=== PATIENT | male | born 1990 ===

== ENCOUNTER 2016-07-23 04:57 | Emergency (ER) | payer OTHER ==
[2016-07-23 04:59] VITALS: BMI 26.6
[2016-07-23 05:01] VITALS: BP 121/84; PULSE 89; TEMP 98.9; O2SAT 92
[2016-07-23 05:05] VITALS: RESP 19
[2016-07-23] MEDS ORDERED: Albuterol-Ipratrop 3 mg / 0.5 (3 ml) UD ONE (05:09)
--- NOTE | 2016-07-23 05:29 | ED PDOC ---
Arrival/HPI - General Chief Complaint: Respiratory Distress Time Seen by Provider: 07/23/16 05:17 Historian: Patient - History of Present Illness Narrative History of Present Illness (Text): 07/23/16 05:29 This is a 25Y M with PMH of asthma here for SOB and wheezing for 1 day. He was using his albuterol inhaler at home without any relief. He denies cough, fever, chills, n/v/d, sick contacts or sore throat. He uses his inhaler rarely, but today used it multiple times today. When inspecting his inhaler, it Apr 2015. He report he was resting when the onset on his wheezing and SOB. Time/Duration: 24 hours Symptom Onset: Gradual Symptom Course: Unchanged Quality: Other (wheezing) Severity Level: 3 Activities at Onset: Rest Context: Home Past Medical History - Provider Review Nursing Documentation Reviewed: Yes - Cardiac Hx Cardiac Disorders: No - Pulmonary Hx Respiratory Disorders: Yes Hx Asthma: Yes - Neurological Hx Neurological Disorder: No - HEENT Hx HEENT Disorder: No - Renal Hx Renal Disorder: No - Endocrine/Metabolic Hx Endocrine Disorders: No - Hematological/Oncological Hx Blood Disorders: No - Integumentary Hx Dermatological Disorder: No - Musculoskeletal/Rheumatological Hx Musculoskeletal Disorders: No - Gastrointestinal Hx Gastrointestinal Disorders: No - Genitourinary/Gynecological Hx Genitourinary Disorders: No - Psychiatric Hx Psychophysiologic Disorder: No Hx Substance Use: No Family/Social History - Physician Review Nursing Documentation Reviewed: Yes Family/Social History: No Known Family HX Smoking Status: Never Smoked Hx Alcohol Use: No Hx Substance Use: No Allergies/Home Meds Allergies/Adverse Reactions: Allergies shellfish derived Allergy (Verified 07/23/16 04:58) ANAPHYLAXIS Review of Systems - Physician Review All systems were reviewed & negative as marked: Yes - Review of Systems Constitutional: Normal. absent: Fevers Eyes: Normal ENT: Normal Respiratory: SOB, Wheezing. absent: Cough, Sputum Cardiovascular: Normal. absent: Chest Pain, Palpitations Gastrointestinal: Normal. absent: Abdominal Pain, Diarrhea, Nausea, Vomiting Musculoskeletal: Normal. absent: Back Pain Skin: Normal. absent: Rash Neurological: Normal. absent: Headache, Dizziness Psychiatric: Normal. absent: Anxiety Physical Exam Vital Signs Reviewed: Yes Vital Signs Temp Pulse Resp BP Pulse Ox 07/23/16 05:02 19 07/23/16 05:00 98.9 F 89 20 121/84 92 L Temperature: Afebrile Blood Pressure: Normal Pulse: Regular Respiratory Rate: Normal Appearance: Positive for: Well-Appearing, Non-Toxic, Comfortable Pain Distress: None Mental Status: Positive for: Alert and Oriented X 3 - Systems Exam Head: Present: Atraumatic, Normocephalic Pupils: Present: PERRL Extroacular Muscles: Present: EOMI Conjunctiva: Present: Normal Mouth: Present: Moist Mucous Membranes Neck: Present: Normal Range of Motion Respiratory/Chest: Present: Good Air Exchange, Wheezes. No: Clear to Auscultation, Respiratory Distress, Accessory Muscle Use Cardiovascular: Present: Regular Rate and Rhythm, Normal S1, S2. No: Murmurs Abdomen: Present: Normal Bowel Sounds. No: Tenderness, Distention, Peritoneal Signs Back: Present: Normal Inspection Upper Extremity: Present: Normal Inspection. No: Cyanosis, Edema Lower Extremity: Present: Normal Inspection. No: Edema Neurological: Present: GCS=15, CN II-XII Intact, Speech Normal Skin: Present: Warm, Dry, Normal Color. No: Rashes Psychiatric: Present: Alert, Oriented x 3, Normal Insight, Normal Concentration Medical Decision Making ED Course and Treatment: 07/23/16 05:32 Impression: This is a 25Y M with PMH of asthma here for SOB and wheezing x 1 day. Plan: -- Duoneb --Reassess Prior Visits: Notes and results from previous visits were reviewed. Progress Note: Patient feels better after Duoneb. Denies SOB or wheezing. There was no wheezing on re-examination. Discharge Instructions: Re-evaluation. Patient feels better. Discussed results and plan with patient who expresses understanding. All questions answered and there is agreement with the plan to discharge home with instructions. Patient stable for discharge. Return if symptoms persist or worsen. Re-evaluation Time: 05:25 Reassessment Condition: Improved - Medication Orders Current Medication Orders: Discontinued Medications Albuterol/Ipratropium (Duoneb 3 Mg/0.5 Mg (3 Ml) Ud) Confirm Administered Dose 3 ml .ROUTE .STK-MED ONE Stop: 07/23/16 05:10 Last Admin: 07/23/16 05:18 Dose: 3 ml Disposition/Present on Arrival - Present on Arrival Any Indicators Present on Arrival: No History of DVT/PE: No History of Uncontrolled Diabetes: No Urinary Catheter: No History of Decub. Ulcer: No History Surgical Site Infection Following: None - Disposition Have Diagnosis and Disposition been Completed?: Yes Diagnosis: Asthma exacerbation Disposition: HOME/ ROUTINE Disposition Time: : Patient Plan: Discharge Patient Problems: Current Active Problems Problem Status Onset Asthma exacerbation Acute Condition: GOOD Discharge Instructions (ExitCare): Asthma (GEN) Print Language: [place] Additional Instructions: Mr. Bhatiascarlett, thank you for letting us take care of you today. Your provider was Dr. Gray. You were treated for asthma exacerbation. The emergency medical care you received today was directed at your acute symptoms. If you were prescribed any medication, please fill it and take as directed. It may take several days for your symptoms to resolve. Return to the Emergency Department if your symptoms worsen, do not improve, or if you have any other problems. Please contact your doctor or call one of the physicians/clinics you have been referred to that are listed on the Patient Visit Information form that is included in your discharge packet. Bring any paperwork you were given at discharge with you along with any medications you are taking to your follow up visit. Our treatment cannot replace ongoing medical care by a primary care provider (PCP) outside of the emergency department. Thank you for allowing the [facility] team to be part of your care today. Prescriptions: Albuterol HFA [Ventolin HFA 90 mcg/actuation (8 g)] 2 puff IH PRN PRN #1 PRN Reason: Wheezing
[2016-07-23] MEDS ORDERED: Albuterol-Ipratrop 3 mg / 0.5 (3 ml) UD IH STA (05:34)
== END 2016-07-23 05:45 | disposition home or self-care (01) ==
LOC: ED 04:57
DX: J45.901 Unspecified asthma with (acute) exacerbation (principal)

== ENCOUNTER 2017-05-30 14:52 | Emergency (ER) | payer OTHER ==
[2017-05-30 15:41] VITALS: RESP 18; TEMP 98.9; BMI 25.0
--- NOTE | 2017-05-30 16:04 | ED PDOC ---
Arrival/HPI - General Chief Complaint: Medical Clearance Time Seen by Provider: 05/30/17 15:03 Historian: Patient - History of Present Illness Narrative History of Present Illness (Text): 05/30/17 16:00 Pt is a 26 year old male who presents to the ED with right side rib pain s/p blunt trauma 4 days ago while at the bar. Pt reports difficulty taking a full breath, coughing or sneezing with point tenderness on the right mid-rib cage. Says he iced the area and took ibuprofen after it happened, felt it helped but noticing now some difficulty doing light activity. Denies chest pain, shortness of breath, fever, chills, back pain, head trauma, n/v/d or any other complaints. Time/Duration: < week Symptom Onset: Gradual Symptom Course: Worsening Quality: Aching Severity Level: 4 Activities at Onset: Light Context: Home, Work Past Medical History - Provider Review Nursing Documentation Reviewed: Yes - Travel History Have you recently traveled outside [place] w/in the past 3 mons?: No - Cardiac Hx Cardiac Disorders: No - Pulmonary Hx Respiratory Disorders: Yes Hx Asthma: Yes - Neurological Hx Neurological Disorder: No - HEENT Hx HEENT Disorder: No - Renal Hx Renal Disorder: No - Endocrine/Metabolic Hx Endocrine Disorders: No - Hematological/Oncological Hx Blood Disorders: No - Integumentary Hx Dermatological Disorder: No - Musculoskeletal/Rheumatological Hx Musculoskeletal Disorders: No - Gastrointestinal Hx Gastrointestinal Disorders: No - Genitourinary/Gynecological Hx Genitourinary Disorders: No - Psychiatric Hx Psychophysiologic Disorder: No Hx Substance Use: No Family/Social History - Physician Review Nursing Documentation Reviewed: Yes Family/Social History: Unknown Family HX Smoking Status: Never Smoked Hx Alcohol Use: No Hx Substance Use: No Allergies/Home Meds Allergies/Adverse Reactions: Allergies shellfish derived Allergy (Verified 05/30/17 15:24) ANAPHYLAXIS Review of Systems - Review of Systems Constitutional: Normal Eyes: Normal ENT: Normal Respiratory: Normal Cardiovascular: Normal Gastrointestinal: Normal Genitourinary Male: Normal Musculoskeletal: Other (R-sided rib cage tenderness) Skin: Normal Neurological: Normal Endocrine: Normal Hemo/Lymphatic: Normal Psychiatric: Normal Physical Exam Vital Signs Reviewed: Yes Vital Signs Temp Pulse Resp BP Pulse Ox 05/30/17 17:15 79 18 148/86 97 05/30/17 15:25 98.9 F 87 18 153/99 H 96 05/30/17 15:24 98.6 F 83 19 153/99 H 97 Temperature: Afebrile Blood Pressure: Hypertensive Pulse: Regular Respiratory Rate: Normal Appearance: Positive for: Well-Appearing, Non-Toxic, Comfortable Pain Distress: Mild Mental Status: Positive for: Alert and Oriented X 3 - Systems Exam Head: Present: Atraumatic, Normocephalic Neck: Present: Normal Range of Motion Respiratory/Chest: Present: Clear to Auscultation, Good Air Exchange, Tender to Palpation (right intercostal and rib pain (R7-8-9)), Other (right intercostal and rib pain (R7-8-9)). No: Respiratory Distress, Accessory Muscle Use, Wheezes , Decreased Breath Sounds, Rales, Retracting, Rhonchi, Tachypneic Cardiovascular: Present: Regular Rate and Rhythm, Normal S1, S2. No: Murmurs Abdomen: Present: Normal Bowel Sounds. No: Tenderness, Distention, Peritoneal Signs Back: Present: Normal Inspection. No: CVA Tenderness, Midline Tenderness, Paraspinal Tenderness, Pain with Leg Raise, Decubitus Ulcer, Other Upper Extremity: Present: Normal Inspection. No: Cyanosis, Edema Lower Extremity: Present: Normal Inspection. No: Edema Neurological: Present: GCS=15, CN II-XII Intact, Speech Normal Skin: Present: Warm, Dry, Normal Color. No: Rashes Psychiatric: Present: Alert, Oriented x 3, Normal Insight, Normal Concentration Medical Decision Making ED Course and Treatment: 05/30/17 16:04 Impression Pt is a 26 year old male who presents to the ED with right side rib pain s/p blunt trauma 4 days ago while at the bar. 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 Ulcer: No History Surgical Site Infection Following: None - Disposition Have Diagnosis and Disposition been Completed?: Yes Diagnosis: Rib injury, Rib contusion, Right rib fracture Disposition: HOME/ ROUTINE Disposition Time: 17:17 Patient Plan: Discharge Condition: STABLE Discharge Instructions (ExitCare): Rib Fractures in Adults Additional Instructions: Dear Kayden, Take Ibuprofen for pain and inflammation and modify your activities until the injury heals. Follow up with the orthopedist you were referred to. If worsening of symptoms in the next 24hrs, return to the ED. JUAN Vargas Prescriptions: Ibuprofen [Motrin Tab] 600 mg PO Q6 PRN 5 Days #20 tab PRN Reason: pain/fever Referrals: [facility], [Non-Staff] - Follow up with primary Marcos Burgos DO [Staff Provider] - Follow up with primary Forms: Maimai (Marshallese)
--- NOTE | 2017-05-30 16:55 | RAD ---
PROCEDURE: Right ribs HISTORY: injury COMPARISON: TECHNIQUE: Four views FINDINGS: There is a nondisplaced fracture of the right 9th rib. There is no pneumothorax IMPRESSION: Nondisplaced fracture of the right 9th rib
[2017-05-30 17:16] VITALS: BP 148/86; PULSE 79; O2SAT 97
== END 2017-05-30 17:48 | disposition home or self-care (01) ==
LOC: ED 14:52
DX: S22.31XA Fracture of one rib, right side, initial encounter for closed fracture (principal); S20.211A Contusion of right front wall of thorax, initial encounter; W22.8XXA Striking against or struck by other objects, initial encounter; Y92.89 Other specified places as the place of occurrence of the external cause